=== PATIENT | male | born 2000 | race Hispanic/Latino ===

== ENCOUNTER 2020-01-31 10:05 | Outpatient (CLI) | payer OTHER ==
--- NOTE | 2020-01-31 12:15 | MRI ---
RIGHT KNEE MRI WITHOUT IV CONTRAST: HISTORY: Medial meniscal tear, right knee pain following an injury from a trip and fall. FINDINGS: No abnormal joint effusion. No significant articular cartilage loss. Medial and lateral meniscus, a nterior and posterior cruciate ligaments, and collateral ligament complexes and quadriceps and patell ar tendons appear intact. No significant acute osteochondral defect or abnormal marrow signal. IMPRESSION: Unremarkable knee MRI. No evidence for significant acute internal derangement. POS: [facility]
== END 2020-01-31 10:06 | disposition home or self-care (01) ==
LOC: SCSMRI 10:05
PROVIDERS: ATTEND Orthopaedic Surgery
DX: S83.242A Other tear of medial meniscus, current injury, left knee, initial encounter (principal)